=== PATIENT | female | born 1950 | race Caucasian/White ===

== ENCOUNTER 2016-08-05 08:41 | Outpatient (CLI) | payer MEDICARE, OTHER | END 2016-08-05 14:02 | LOC: D.MAMMO 08:41 | DX: Z12.31 Encounter for screening mammogram for malignant neoplasm of breast (principal) ==

== ENCOUNTER → 2017-04-14 15:14 | Outpatient (CLI) | payer MEDICARE, OTHER | END | disposition home or self-care (01) | LOC: D.CT 15:14 | DX: R93.3 Abnormal findings on diagnostic imaging of other parts of digestive tract (principal) ==

== ENCOUNTER → 2017-04-21 10:08 | Outpatient (CLI) | payer MEDICARE, OTHER ==
[2017-04-21 10:34] LABS: BASOPHILS 0.6 % (0-2); EOSINOPHILS 7.2 % (0-7); HEMATOCRIT 38.7 % (36.0-48.0); HEMOGLOBIN 12.9 g/dL (12-16); IMMATURE GRANULOCYTES 0.4 % (0-5); LYMPHOCYTES 37.7 % (15-50); MCHC 33.3 g/dL (31.0-37.0); MEAN PLATELET VOLUME 9.6 fL (7.4-10.4); MONOCYTES 9.7 % (2-11); NEUTROPHILS 44.4 % (40-80); PLATELET COUNT 177 10x3/uL (130-400); RBC 4.16 10x6/uL (4.00-5.40); RDW 13.6 % (11.5-14.5); WBC 5.1 10x3/uL (4.8-10.8)
[2017-04-21 10:58] LABS: ALBUMIN 3.4 g/dL (3.4-5.0); ALKALINE PHOSPHATASE 61 U/L (46-116); ALT (SGPT) 26 U/L (10-68); BILIRUBIN - TOTAL 0.33 mg/dL (0.2-1.3); CALC OSMOLALITY 278 mosm/kg (275-300); CALCIUM 9.3 mg/dL (8.5-10.1); CARBON DIOXIDE 29.1 mmol/L (21.0-32.0); CHLORIDE - SERUM 103 mmol/L (98-107); CREATININE - SERUM 0.8 mg/dL (0.6-1.3); GLUCOSE 100 mg/dL (74-106); POTASSIUM - SERUM 4.2 mmol/L (3.5-5.1); PROTEIN - SERUM 7.1 g/dL (6.4-8.2); SODIUM 140 mmol/L (136-145); UREA NITROGEN 12 mg/dL (7-18); eGFR NON AFRICAN AMERICAN 76 mL/min (90-120)
== END | disposition home or self-care (01) ==
LOC: D.LAB 04-19 08:30
PROVIDERS: Internal Medicine Gastroenterology
DX: D37.4 Neoplasm of uncertain behavior of colon (principal)

== ENCOUNTER 2017-05-11 08:25 | Inpatient (IN) | payer MEDICARE, OTHER ==
[~2017-05-11] VITALS: Ht 170.2 cm; Wt 90.7 kg
--- NOTE | ~2017-05-11 | OP ---
PATIENT NAME: LELE HERNANDEZ MEDICAL RECORD: [id number] :50 LOCATION:D.MS [id number] ADMISSION DATE:05/11/17 SURGEON: MUSA STEVENS MD DATE OF OPERATION: 05/11/2017 PREOPERATIVE DIAGNOSIS: Right colon mass on the ileocecal valve. POSTOPERATIVE DIAGNOSES: Right colon mass on the ileocecal valve with advanced cirrhosis. PROCEDURE: 1. Hand-assisted laparoscopic surgery - right hemicolectomy. 2. 18-gauge core needle liver biopsies. SURGEON: Musa Stevens MD ANESTHESIA: General. COMPLICATIONS: None. The risks, possible complications, and alternatives to the procedure were explained to the patient. She elects to proceed. OPERATIVE COURSE: The patient was conveyed to the operating room electively on 05/11/2017. General anesthesia was induced by the anesthesia staff. The abdomen was sterilely prepped and draped. A small skin kavitha was accomplished in the left upper quadrant. Veress needle was inserted through the skin kavitha into the peritoneal cavity. CO2 insufflation was begun. Upon insufflating the abdomen, I could then see through some translucent skin, some very large subcutaneous blood vessels. I became concerned that the patient may have cirrhosis. A 5-mm trocar was inserted through an incision in the umbilicus. Two more 5 mm trocars were inserted, one in the epigastrium and one in the suprapubic area. During insertion of the Veress needle and all the trocars, there appeared to have been no injury to the bowels, any intraperitoneal or retroperitoneal structures. There was advanced cirrhosis present. There was also stigmata of portal hypertension noted with enlarged mesenteric veins and enlarged omental veins. I elected to perform a liver biopsy. I percutaneously accessed the right upper quadrant under laparoscopic guidance with an 18-gauge core needle liver biopsy device. Cores were obtained over the convexity of the liver. The biopsy sites were made hemostatic with the electrocautery. I then pulled the right colon medially. I incised along the right white line of Toldt with the laparoscopic EnSeal device. I performed some blunt dissection as well, freeing up the ileum as well as the right colon and the hepatic flexure. I then decided to place the Justin retractor. I chose an area in the right upper quadrant for insertion of the Justin retractor. A transverse incision was accomplished there. I then dissected down through the skin and subcutaneous tissue with electrocautery. I incised the external oblique aponeurosis and muscle along the direction of its fibers. I then the internal oblique and transversus abdominis muscles. I entered the peritoneal cavity sharply. The Justin retractor was placed. I was able to exteriorize the right colon as OPERATIVE REPORT [id number] LELE HERNANDEZ well as the ileum. A window was created in the mesentery of the ileum. I stapled across the tip of the ileum with an Endo-RHIANNON type stapler utilizing a blue load. I then chose the distal extent of my resection as the proximal transverse colon. A window was created in the mesocolon. I stapled across this part of the colon with an Endo-RHIANNON type stapler utilizing a blue load. The interpose mesentery was taken down with the laparoscopic EnSeal device. I ensured that the small bowel was not twisted on its mesentery. Some 3-0 Vicryl sutures were used to place the ileum and the transverse colon into apposition side by side. A small colotomy and small enterotomy were accomplished. Anvils of the RHIANNON-75 stapler were advanced. I then stapled. The resulting intracolonic defect was closed with a single firing of a TA 60 stapler. I oversewed portions of the staple line with some 3-0 Vicryls. I irrigated and aspirated in the right upper quadrant. Additional hemostasis was achieved with application of Angelo. The internal oblique and transversus abdominis muscle layers were closed with running #1 Vicryls. The external oblique aponeurosis and muscle was closed with a running #1 Vicryl. The subcutaneous adipose tissue was closed with interrupted 3-0 Vicryls. The subdermis was approximated with interrupted 3-0 Vicryls. The skin in the right upper quadrant was closed with a running intracuticular 4-0 Vicryl. The other 3 trocars were removed after I placed a 10-New Zealander closed suction drain through the inferior most trocar site. The drain was sutured to the skin with a 2-0 nylon. The skin at the umbilicus was closed with interrupted 4-0 Vicryl Rapide sutures. The skin in the epigastrium was closed with interrupted intracuticular 3-0 Vicryl. Sterile dressings were applied. The patient was then conveyed to the post-anesthesia care unit where she was in stable condition. TRANSINT:[id number] Voice Confirmation ID: [id number] DOCUMENT ID: [id number] MUSA STEVENS MD at 1607 CC: VITO REHMAN MD and EVGENY HUTCHINS [id number] DICTATION DATE: 05/11/17 1639 TYPE MAPPER: 05/11/17 1833 ADM IN [place] [id number] [place] [id number]
[~2017-05-11 08:25] MED LIST: BAYER CHEWABLE81 MG PO; CELEXA20 MG PO; CENTRUM SILVER1 TA1 PO; COREG6.25 MG PO; FISH OIL 1,0001 CA1 PO; HYDROCHLOROTHIA25 MG PO; LIPITOR40 MG PO; MIRAPEX0.25 MG PO; PERCOCET 5-3251 TAB PO; PROTONIX40 MG PO; SYNTHROID137 MCG PO; TRIGLIDE160 MG PO; VITAMIN D2000 UNIT PO
[2017-05-11 09:24] VITALS: BP 104/68; BMI 31.4
[2017-05-11 10:03] LABS: HEMATOCRIT 35.6 % (36.0-48.0); HEMOGLOBIN 11.7 g/dL (12-16); MCH 30.6 pg (26.0-34.0); MCHC 32.9 g/dL (31.0-37.0); MCV 93.2 fL (80.0-100.0); MEAN PLATELET VOLUME 9.7 fL (7.4-10.4); RBC 3.82 10x6/uL (4.00-5.40); RDW 12.9 % (11.5-14.5); WBC 6.5 10x3/uL (4.8-10.8)
[2017-05-11 16:19] VITALS: BP 127/73
[2017-05-11 22:09] VITALS: BP 163/86
[2017-05-11 22:30] VITALS: BMI 31.4
[2017-05-12 01:29] VITALS: BP 136/64
[2017-05-12 04:33] VITALS: BP 102/60
[2017-05-12 07:17] LABS: BASOPHILS 0.1 % (0-2); EOSINOPHILS 0.2 % (0-7); HEMATOCRIT 33.8 % (36.0-48.0); IMMATURE GRANULOCYTES 0.2 % (0-5); LYMPHOCYTES 13.1 % (15-50); MCH 30.5 pg (26.0-34.0); MCHC 32.5 g/dL (31.0-37.0); MCV 93.6 fL (80.0-100.0); MEAN PLATELET VOLUME 9.2 fL (7.4-10.4); MONOCYTES 9.3 % (2-11); NEUTROPHILS 77.1 % (40-80); PLATELET COUNT 158 10x3/uL (130-400); RBC 3.61 10x6/uL (4.00-5.40)
[2017-05-12 07:18] LABS: WBC 8.3 10x3/uL (4.8-10.8)
[2017-05-12 07:52] LABS: ALBUMIN 2.6 g/dL (3.4-5.0); ALKALINE PHOSPHATASE 70 U/L (46-116); ALT (SGPT) 27 U/L (10-68); BILIRUBIN - TOTAL 0.79 mg/dL (0.2-1.3); CALC OSMOLALITY 269 mosm/kg (275-300); CALCIUM 8.4 mg/dL (8.5-10.1); CARBON DIOXIDE 20.8 mmol/L (21.0-32.0); CHLORIDE - SERUM 100 mmol/L (98-107); CREATININE - SERUM 0.8 mg/dL (0.6-1.3); GLUCOSE 86 mg/dL (74-106); MAGNESIUM - SERUM 1.1 mg/dL (1.8-2.4); POTASSIUM - SERUM 3.6 mmol/L (3.5-5.1); PROTEIN - SERUM 6.2 g/dL (6.4-8.2); SODIUM 136 mmol/L (136-145); UREA NITROGEN 10 mg/dL (7-18); eGFR NON AFRICAN AMERICAN 76 mL/min (90-120)
[2017-05-12 07:53] LABS: TROPONIN-I < 0.017 ng/mL (0.000-0.060)
[2017-05-12 07:57] VITALS: BP 115/61
[2017-05-12 13:07] VITALS: BP 114/65
[2017-05-12 13:18] VITALS: Ht 170.2 cm; Wt 90.7 kg
[2017-05-12 20:00] VITALS: BP 116/63
[2017-05-13 04:00] VITALS: BP 113/64
[2017-05-13 07:44] VITALS: BP 109/50
[2017-05-13 13:19] LABS: HEPATITIS C ANTIBODY <0.1 (0.0-0.9)
[2017-05-13 15:55] VITALS: BP 105/63
[2017-05-13 20:00] VITALS: BP 117/74
[2017-05-14 04:00] VITALS: BP 121/77
[2017-05-14 06:06] LABS: BASOPHILS 0.2 % (0-2); EOSINOPHILS 6.5 % (0-7); HEMATOCRIT 31.2 % (36.0-48.0); HEMOGLOBIN 10.1 g/dL (12-16); IMMATURE GRANULOCYTES 0.2 % (0-5); LYMPHOCYTES 22.7 % (15-50); MCH 30.6 pg (26.0-34.0); MCHC 32.4 g/dL (31.0-37.0); MCV 94.5 fL (80.0-100.0); MEAN PLATELET VOLUME 9.5 fL (7.4-10.4); MONOCYTES 7.8 % (2-11); NEUTROPHILS 62.6 % (40-80); PLATELET COUNT 145 10x3/uL (130-400); RDW 12.8 % (11.5-14.5)
[2017-05-14 06:22] LABS: WBC 6.1 10x3/uL (4.8-10.8)
[2017-05-14 06:29] LABS: ALKALINE PHOSPHATASE 54 U/L (46-116); CALC OSMOLALITY 275 mosm/kg (275-300); CALCIUM 7.9 mg/dL (8.5-10.1); CARBON DIOXIDE 22.3 mmol/L (21.0-32.0); CHLORIDE - SERUM 105 mmol/L (98-107); CREATININE - SERUM 0.7 mg/dL (0.6-1.3); GLUCOSE 124 mg/dL (74-106); POTASSIUM - SERUM 3.5 mmol/L (3.5-5.1); PROTEIN - SERUM 5.6 g/dL (6.4-8.2); SODIUM 138 mmol/L (136-145); UREA NITROGEN 11 mg/dL (7-18); eGFR NON AFRICAN AMERICAN 89 mL/min (90-120)
[2017-05-14 06:30] LABS: ALT (SGPT) 20 U/L (10-68)
[2017-05-14 08:15] VITALS: BP 119/75
[2017-05-14 13:04] VITALS: BP 151/80
[2017-05-14 15:58] VITALS: BP 150/76
[2017-05-14 21:57] VITALS: BP 130/69
[2017-05-15 00:57] VITALS: BP 134/68
[2017-05-15 04:36] LABS: BASOPHILS 0.2 % (0-2); EOSINOPHILS 6.2 % (0-7); HEMOGLOBIN 10.5 g/dL (12-16); IMMATURE GRANULOCYTES 0.2 % (0-5); LYMPHOCYTES 26.4 % (15-50); MCH 30.1 pg (26.0-34.0); MCHC 32.8 g/dL (31.0-37.0); MEAN PLATELET VOLUME 9.2 fL (7.4-10.4); MONOCYTES 8.8 % (2-11); NEUTROPHILS 58.2 % (40-80); PLATELET COUNT 171 10x3/uL (130-400); RBC 3.49 10x6/uL (4.00-5.40); RDW 12.5 % (11.5-14.5); WBC 5.4 10x3/uL (4.8-10.8)
[2017-05-15 04:45] LABS: MCV 91.7 fL (80.0-100.0)
[2017-05-15 05:04] LABS: ALBUMIN 2.1 g/dL (3.4-5.0); ALKALINE PHOSPHATASE 63 U/L (46-116); ALT (SGPT) 19 U/L (10-68); CALC OSMOLALITY 276 mosm/kg (275-300); CALCIUM 8.2 mg/dL (8.5-10.1); CARBON DIOXIDE 23.3 mmol/L (21.0-32.0); CHLORIDE - SERUM 106 mmol/L (98-107); CREATININE - SERUM 0.6 mg/dL (0.6-1.3); GLUCOSE 96 mg/dL (74-106); POTASSIUM - SERUM 3.4 mmol/L (3.5-5.1); PROTEIN - SERUM 5.8 g/dL (6.4-8.2); SODIUM 140 mmol/L (136-145); eGFR NON AFRICAN AMERICAN > 90 mL/min (90-120)
[2017-05-15 05:05] LABS: UREA NITROGEN 8 mg/dL (7-18)
[2017-05-15 05:45] VITALS: BP 124/84
[2017-05-15 09:16] VITALS: BP 161/93
[2017-05-15 12:08] VITALS: BP 168/98
[2017-05-15 16:07] VITALS: BP 155/85
[2017-05-15 23:18] VITALS: BP 150/104
[2017-05-16 04:00] VITALS: BP 154/99
[2017-05-16 04:07] LABS: BASOPHILS 0.2 % (0-2); EOSINOPHILS 4.3 % (0-7); HEMATOCRIT 33.4 % (36.0-48.0); HEMOGLOBIN 11.4 g/dL (12-16); IMMATURE GRANULOCYTES 0.2 % (0-5); LYMPHOCYTES 36.2 % (15-50); MCHC 34.1 g/dL (31.0-37.0); MCV 90.8 fL (80.0-100.0); MEAN PLATELET VOLUME 9.3 fL (7.4-10.4); MONOCYTES 10.6 % (2-11); NEUTROPHILS 48.5 % (40-80); PLATELET COUNT 201 10x3/uL (130-400); RBC 3.68 10x6/uL (4.00-5.40); RDW 12.5 % (11.5-14.5); WBC 5.4 10x3/uL (4.8-10.8)
[2017-05-16 04:21] LABS: CALCIUM 9.1 mg/dL (8.5-10.1); CARBON DIOXIDE 26.6 mmol/L (21.0-32.0); CHLORIDE - SERUM 103 mmol/L (98-107); CREATININE - SERUM 0.7 mg/dL (0.6-1.3); GLUCOSE 89 mg/dL (74-106); SODIUM 139 mmol/L (136-145); eGFR NON AFRICAN AMERICAN 89 mL/min (90-120)
[2017-05-16 04:22] LABS: CALC OSMOLALITY 273 mosm/kg (275-300); UREA NITROGEN 4 mg/dL (7-18)
[2017-05-16 04:23] LABS: POTASSIUM - SERUM 2.9 mmol/L (3.5-5.1)
[2017-05-16 08:25] VITALS: BP 148/80
[2017-05-16 14:08] VITALS: BP 137/83
== END 2017-05-16 16:10 | disposition home or self-care (01) | DRG 981 ==
LOC: D.SDCHOLD 08:25 → D.MS 08:25 → D.SDCHOLD 11:00 → D.MS 16:18
PROVIDERS: Anesthesiology; Family Medicine; Surgery
PROC: 0FB03ZX Excision of Liver, Percutaneous Approach, Diagnostic (ICD-10-PCS; 2017-05-11)
PROC: 0DTF0ZZ Resection of Right Large Intestine, Open Approach (ICD-10-PCS; principal; 2017-05-11 11:00)
DX: K74.60 Unspecified cirrhosis of liver (principal); J18.9 Pneumonia, unspecified organism; E72.20 Disorder of urea cycle metabolism, unspecified; J95.89 Other postprocedural complications and disorders of respiratory system, not elsewhere classified; R41.0 Disorientation, unspecified; R50.9 Fever, unspecified; Y83.8 Other surgical procedures as the cause of abnormal reaction of the patient, or of later complication, without mention of misadventure at the time of the procedure

== ENCOUNTER 2017-07-27 05:44 | Day surgery (SDC) | payer MEDICARE, OTHER ==
[~2017-07-27] VITALS: Ht 170.2 cm; Wt 85.7 kg
--- NOTE | ~2017-07-27 | OP ---
PATIENT NAME: LELE HERNANDEZ MEDICAL RECORD: [id number] :50 LOCATION:DERIC ADMISSION DATE: SURGEON: MUSA STEVENS MD DATE OF OPERATION: 07/27/2017 PREOPERATIVE DIAGNOSIS: History of a duodenal adenoma. POSTOPERATIVE DIAGNOSES: 1. History of a duodenal adenoma. The adenoma was a 1.5-cm adenoma at the second portion of duodenum. 2. Multiple prepyloric and antral gastric ulcers, which were raised but had ulcerated areas within the center of the contained exudative debris. 3. 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 PROCEDURES: 1. Esophagogastroduodenoscopy with duodenal polypectomy utilizing the argon plasma associate professor of communication, which is a radiofrequency type of ablation of a benign small bowel process. 2. Argon plasma coagulation therapy to these raised, ulcerated, and polypoid lesions that were in the antrum and the prepyloric area. I did this as they probably had bled in the recent past. 3. Cold endoscopic biopsies of the distal esophagus to rule out Xiao's esophagus. SURGEON: Musa Stevens MD ADVERTISING INTERN: None. BLOOD LOSS: Minimal. ANESTHESIA: General. COMPLICATIONS: None. The risks, possible complications, and alternatives to the procedure were explained to the patient. She elects to proceed. The discussion specifically included, but was not limited to, bleeding requiring an emergency reoperation, infection, endoscopic perforation. OPERATIVE COURSE: The patient was conveyed to the operating room electively on 07/27/2017. General anesthesia was induced by the anesthesia staff. A bite-block was inserted. A gastroscope was inserted into the mouth. It was advanced easily into the hypopharynx. The esophagus was easily intubated as were the stomach and the duodenum. Upon withdrawal, retroflexed and angulus views were obtained. Antral biopsies were obtained in the area of the ulcerated lesions. I then advanced into the duodenum. Cold endoscopic biopsies were performed of the flat polyp which was easily identifiable and was better seen with narrow band imaging. Multiple cold endoscopic biopsies were performed. I then ablated the remaining polypoid tissue with the argon plasma associate professor of communication utilizing the esophageal setting in the forced mode. I then withdrew into the antrum and the prepyloric area. I then ablated the polypoid lesions with the argon plasma associate professor of communication. Retroflexed and angulus views were obtained. I then withdrew into the distal esophagus. Cold endoscopic biopsies were performed at the distal esophagus to rule out Xiao's OPERATIVE REPORT [id number] LELE HERNANDEZ esophagus. The endoscope was then withdrawn under direct vision. I will see the patient back in my office in 2-3 weeks. I will plan for another EGD utilizing the argon plasma associate professor of communication in one year to see if there has been any regrowth of the duodenal adenoma. TRANSINT:[id number] Voice Confirmation ID: [id number] DOCUMENT ID: [id number] MUSA STEVENS MD CC: VITO REHMAN MD and EVGENY HUTCHINS [id number] DICTATION DATE: 07/27/17 183 NETWORK PROFESSIONAL: 07/27/17 224 [facility] 07/27/17 [facility] [address] [place] [address]
[~2017-07-27 05:44] MED LIST changes: +SYNTHROID125 MCG PO; -SYNTHROID137 MCG PO
[2017-07-27 06:30] VITALS: BP 120/79; Ht 170.2 cm; Wt 85.7 kg
[2017-07-27 06:48] LABS: HEMATOCRIT 40.8 % (36.0-48.0); HEMOGLOBIN 13.6 g/dL (12-16); MCH 29.9 pg (26.0-34.0); MCHC 33.3 g/dL (31.0-37.0); MCV 89.7 fL (80.0-100.0); MEAN PLATELET VOLUME 9.3 fL (7.4-10.4); RBC 4.55 10x6/uL (4.00-5.40); RDW 14.3 % (11.5-14.5); WBC 7.9 10x3/uL (4.8-10.8)
[2017-07-27 07:09] LABS: ALBUMIN 3.3 g/dL (3.4-5.0); ALKALINE PHOSPHATASE 84 U/L (46-116); ALT (SGPT) 25 U/L (10-68); CALC OSMOLALITY 275 mosm/kg (275-300); CALCIUM 9.6 mg/dL (8.5-10.1); CARBON DIOXIDE 26.4 mmol/L (21.0-32.0); CHLORIDE - SERUM 101 mmol/L (98-107); CREATININE - SERUM 0.7 mg/dL (0.6-1.3); GLUCOSE 121 mg/dL (74-106); POTASSIUM - SERUM 3.4 mmol/L (3.5-5.1); PROTEIN - SERUM 7.5 g/dL (6.4-8.2); SODIUM 137 mmol/L (136-145); UREA NITROGEN 14 mg/dL (7-18); eGFR NON AFRICAN AMERICAN 89 mL/min (90-120)
[2017-07-27 07:10] LABS: APTT 27.4 SECONDS (22.8-39.4); INR 1.05 (0.85-1.17); PROTIME 13.3 SECONDS (11.6-15.0)
== END 2017-07-27 14:45 | disposition home or self-care (01) ==
LOC: D.OPS 05:44 → D.PAN 09:00 → D.OPS 09:00 → D.PAN 09:30 → D.OPS 14:45
PROVIDERS: Anesthesiology
DX: D13.2 Benign neoplasm of duodenum (principal); K29.50 Unspecified chronic gastritis without bleeding; K25.7 Chronic gastric ulcer without hemorrhage or perforation; K20.9 Esophagitis, unspecified; Z01.812 Encounter for preprocedural laboratory examination

== ENCOUNTER 2017-08-16 08:00 | Outpatient (CLI) | payer MEDICARE, OTHER ==
[2017-07-27 06:30] VITALS: BMI 29.6
== END 2017-08-16 08:01 | disposition home or self-care (01) ==
LOC: D.MAMMO 08:00
DX: Z12.31 Encounter for screening mammogram for malignant neoplasm of breast (principal)

== ENCOUNTER → 2017-09-01 19:03 | Outpatient (CLI) | payer MEDICARE, OTHER ==
[2017-07-27 06:30] VITALS: BMI 29.6
== END | disposition home or self-care (01) ==
LOC: D.MAMMO 09:00
DX: R92.8 Other abnormal and inconclusive findings on diagnostic imaging of breast (principal)

== ENCOUNTER → 2017-10-10 10:45 | Outpatient (CLI) | payer MEDICARE, OTHER ==
[2017-07-27 06:30] VITALS: BMI 29.6
== END | disposition home or self-care (01) ==
LOC: D.US 10:45
DX: N63.11 Unspecified lump in the right breast, upper outer quadrant (principal)

== ENCOUNTER → 2017-11-04 19:00 | Outpatient (CLI) | payer MEDICARE, OTHER ==
[2017-07-27 06:30] VITALS: BMI 29.6
== END | disposition home or self-care (01) ==
LOC: D.MAMMO 10-28 08:00
DX: R92.8 Other abnormal and inconclusive findings on diagnostic imaging of breast (principal)

== ENCOUNTER → 2017-11-14 07:07 | Outpatient (CLI) | payer MEDICARE, OTHER ==
[2017-07-27 06:30] VITALS: BMI 29.6
[2017-11-14 08:03] LABS: BASOPHILS 0.3 % (0-2); EOSINOPHILS 0.5 % (0-7); HEMATOCRIT 42.8 % (36.0-48.0); HEMOGLOBIN 14.6 g/dL (12-16); IMMATURE GRANULOCYTES 0.3 % (0-5); LYMPHOCYTES 30.4 % (15-50); MCHC 34.1 g/dL (31.0-37.0); MCV 90.9 fL (80.0-100.0); MEAN PLATELET VOLUME 9.6 fL (7.4-10.4); MONOCYTES 7.5 % (2-11); PLATELET COUNT 171 10x3/uL (130-400); RBC 4.71 10x6/uL (4.00-5.40); RDW 13.9 % (11.5-14.5); WBC 7.9 10x3/uL (4.8-10.8)
[2017-11-14 08:14] LABS: % SATURATION 20 % (15-55); APTT 25.1 SECONDS (22.8-39.4); INR 1.11 (0.85-1.17); IRON 89 ug/dl (35-150); PROTIME 13.9 SECONDS (11.6-15.0); TOTAL IRON BIND CAPACITY 427 ug/dl (260-445); UNSAT IRON BIND CAPACITY 338 ug/dl (150-375)
[2017-11-14 08:28] LABS: ALBUMIN 3.9 g/dL (3.4-5.0); ANION GAP 10.4 mmol/L (8-16); BILIRUBIN - DIRECT 0.15 mg/dL (0.00-0.30); BILIRUBIN - INDIRECT 0.29 mg/dL (0.00-1.00); BILIRUBIN - TOTAL 0.44 mg/dL (0.2-1.3); CALCIUM 9.1 mg/dL (8.5-10.1); CARBON DIOXIDE 29.6 mmol/L (21.0-32.0); CHOL - HDL RATIO 2.3 ratio (2.3-4.1); LDL-HDL RATIO 1.2 ratio (1.5-3.5); PROTEIN - SERUM 7.7 g/dL (6.4-8.2)
[2017-11-15 07:28] LABS: HAPTOGLOBIN 115 mg/dL (34-200)
[2017-11-15 08:17] LABS: FOLATE (FOLIC ACID) - SERUM >20.0 ng/mL (>3.0); HEPATITIS C ANTIBODY <0.1 (0.0-0.9)
[2017-11-15 12:14] LABS: ANA REFLEX - DIRECT Negative (Negative)
[2017-11-15 14:23] LABS: ALPHA FETOPROTEIN -(TUMOR MRK) 4.1 ng/mL (0.0-8.3)
[2017-11-16 14:24] LABS: MITOCHONDRIAL ANTIBODY 10.8 Units (0.0-20.0); SMOOTH MUSCLE ABS (ACTIN) 64 Units (0-19)
== END | disposition home or self-care (01) ==
LOC: D.US 07:07
PROVIDERS: Internal Medicine Gastroenterology
DX: K74.60 Unspecified cirrhosis of liver (principal)

== ENCOUNTER → 2018-05-15 07:46 | Outpatient (CLI) | payer MEDICARE, OTHER ==
[2017-07-27 06:30] VITALS: BMI 29.6
[2018-05-15 08:24] LABS: BASOPHILS 0.3 % (0-2); EOSINOPHILS 3.4 % (0-7); HEMATOCRIT 42.3 % (36.0-48.0); HEMOGLOBIN 14.7 g/dL (12-16); IMMATURE GRANULOCYTES 0.2 % (0-5); MCH 31.5 pg (26.0-34.0); MCHC 34.8 g/dL (31.0-37.0); MCV 90.8 fL (80.0-100.0); MEAN PLATELET VOLUME 9.6 fL (7.4-10.4); MONOCYTES 7.5 % (2-11); NEUTROPHILS 40.6 % (40-80); PLATELET COUNT 165 10x3/uL (130-400); RBC 4.66 10x6/uL (4.00-5.40); RDW 12.5 % (11.5-14.5); WBC 5.9 10x3/uL (4.8-10.8)
[2018-05-15 08:38] LABS: ALBUMIN 3.8 g/dL (3.4-5.0); BILIRUBIN - DIRECT 0.12 mg/dL (0.00-0.30); BILIRUBIN - INDIRECT 0.22 mg/dL (0.00-1.00); BILIRUBIN - TOTAL 0.34 mg/dL (0.2-1.3); INR 1.01 (0.85-1.17); PROTEIN - SERUM 7.3 g/dL (6.4-8.2); PROTIME 12.8 SECONDS (11.6-15.0)
== END | disposition home or self-care (01) ==
LOC: D.US 07:30
PROVIDERS: ATTEND Internal Medicine Gastroenterology
DX: K74.60 Unspecified cirrhosis of liver (principal)

== ENCOUNTER → 2018-06-20 09:57 | Outpatient (CLI) | payer MEDICARE, OTHER | END | disposition home or self-care (01) | LOC: D.CT 09:57 | DX: R10.9 Unspecified abdominal pain (principal) ==

== ENCOUNTER 2018-07-19 08:00 | Outpatient (CLI) | payer MEDICARE, OTHER ==
[2017-07-27 06:30] VITALS: BMI 29.6
== END 2018-07-19 09:00 | disposition home or self-care (01) ==
LOC: D.MAMMO 08:00
PROVIDERS: ATTEND Family Medicine
DX: R92.8 Other abnormal and inconclusive findings on diagnostic imaging of breast (principal)

== ENCOUNTER 2018-07-25 08:31 | Day surgery (SDC) | payer MEDICARE, OTHER ==
[~2018-07-25] VITALS: Ht 170.2 cm; Wt 90.9 kg
[2018-07-25 08:52] LABS: HEMATOCRIT 38.9 % (36.0-48.0); HEMOGLOBIN 13.6 g/dL (12-16); MCH 31.8 pg (26.0-34.0); MCV 90.9 fL (80.0-100.0); MEAN PLATELET VOLUME 9.4 fL (7.4-10.4); RBC 4.28 10x6/uL (4.00-5.40); RDW 13.1 % (11.5-14.5); WBC 4.6 10x3/uL (4.8-10.8)
[2018-07-25 09:04] LABS: APTT 26.6 SECONDS (22.8-39.4)
[2018-07-25 09:11] LABS: ALBUMIN 3.5 g/dL (3.4-5.0); ALKALINE PHOSPHATASE 61 U/L (46-116); ALT (SGPT) 30 U/L (10-68); BILIRUBIN - TOTAL 0.26 mg/dL (0.2-1.3); CALC OSMOLALITY 285 mosm/kg (275-300); CALCIUM 9.1 mg/dL (8.5-10.1); CARBON DIOXIDE 28.8 mmol/L (21.0-32.0); CHLORIDE - SERUM 105 mmol/L (98-107); CREATININE - SERUM 0.7 mg/dL (0.6-1.3); GLUCOSE 112 mg/dL (74-106); POTASSIUM - SERUM 3.7 mmol/L (3.5-5.1); SODIUM 142 mmol/L (136-145); UREA NITROGEN 18 mg/dL (7-18); eGFR NON AFRICAN AMERICAN 88 mL/min (90-120)
[2018-07-25 09:16] LABS: PROTIME 13.1 SECONDS (11.6-15.0)
[2018-07-25 10:00] VITALS: Ht 170.2 cm; Wt 90.9 kg
--- NOTE | 2018-07-25 14:38 | NUR ---
1439 DC INSTS REVIEWED VOICED UNDERSTANDING PT IS DRESSED RELEASED IN WC WITH FAMILY.
--- NOTE | 2018-07-30 14:09 | OP ---
PATIENT NAME: LELE HERNANDEZ MEDICAL RECORD: [id number] :50 LOCATION:D.OPS ADMISSION DATE: SURGEON: MUSA STEVENS MD DATE OF OPERATION: 07/25/2018 PREOPERATIVE DIAGNOSES: 1. Antral gastric polyps, bleeding. 2. Duodenal polyp. POSTOPERATIVE DIAGNOSES: 1. Antral gastric polyps, bleeding. 2. Duodenal polyp. 3. Probable Xiao's esophagus. PROCEDURES: 1. EGD. 2. Gastric polypectomies times 2, utilizing the argon plasma inside sales coordinator. 3. Duodenal polypectomy times 1, utilizing the argon plasma inside sales coordinator. SURGEON: Musa Stevens MD SURGICAL FIRST ASSISTANT: None. BLOOD LOSS: Minimal. ANESTHESIA: Oral topical anesthesia as well as IV sedation. COMPLICATIONS: None. The risks, possible complications, and alternatives to the procedure were explained to the patient. She elects to proceed. The discussion specifically included, but was not limited to, bleeding requiring emergency reoperation, infection, endoscopic perforation. ENDOSCOPIC COURSE: The patient was conveyed to the endoscopy suite electively on 07/25/2018. IV sedation was induced by the anesthesia staff. A bite block was inserted. A gastroscope was inserted into the mouth. It was advanced easily into the hypopharynx. The esophagus was easily intubated as was the stomach and the duodenum. Upon withdrawal, retroflexed and angulus views were obtained. I advanced into the duodenum. The polypoid structure that I saw was at 9 o'clock and was within the duodenal bulb. Cold endoscopic biopsies were performed. After adequate biopsies, I then ablated the polypoid base with the argon plasma inside sales coordinator utilizing the esophageal setting in the forced mode. I withdrew into the stomach. Both of the polyps were biopsied multiply. The specimens were placed together in one specimen container. It appeared that the polyps had been bleeding. I then ablated the polypoid bases with the argon plasma inside sales coordinator utilizing the esophageal setting in the forced mode. I then withdrew into the distal esophagus. There appeared to be a Xiao's esophagus present. I began to perform some cold endoscopic biopsies. I ran into some bleeding that I felt was unsatisfactory, so I discontinued further biopsies of the distal esophagus. The gastroscope was then withdrawn under direct vision. OPERATIVE REPORT [id number] LELE HERNANDEZ I will see the patient in my office in 2-3 weeks. I would like to go back in in 1-2 years and in particular examine this duodenal polyp to ensure that it has not regrown. TRANSINT:[id number] Voice Confirmation ID: [id number] DOCUMENT ID: [id number] MUSA STEVENS MD at 1409 CC: VITO REHMAN MD and EVGENY HUTCHINS [id number] DICTATION DATE: 07/25/18 1350 LEGAL RESEARCHER: 07/25/18 1457 [facility] 07/25/18 [place] [id number] [place] [address]
== END 2018-07-25 14:39 | disposition home or self-care (01) ==
LOC: D.OPS 08:31
PROVIDERS: Anesthesiology; ATTEND Surgery
DX: K31.7 Polyp of stomach and duodenum (principal); K22.70 Barrett's esophagus without dysplasia; Z01.812 Encounter for preprocedural laboratory examination

== ENCOUNTER → 2018-11-07 13:11 | Outpatient (CLI) | payer MEDICARE, OTHER ==
[2018-07-25 10:00] VITALS: BMI 31.4
[2018-11-07 13:33] LABS: BASOPHILS 0.3 % (0-2); EOSINOPHILS 2.2 % (0-7); HEMATOCRIT 45.2 % (36.0-48.0); HEMOGLOBIN 15.9 g/dL (12-16); IMMATURE GRANULOCYTES 0.3 % (0-5); LYMPHOCYTES 31.1 % (15-50); MCH 32.6 pg (26.0-34.0); MCHC 35.2 g/dL (31.0-37.0); MCV 92.8 fL (80.0-100.0); MEAN PLATELET VOLUME 9.2 fL (7.4-10.4); NEUTROPHILS 59.1 % (40-80); PLATELET COUNT 147 10x3/uL (130-400); RBC 4.87 10x6/uL (4.00-5.40); RDW 12.8 % (11.5-14.5); WBC 6.8 10x3/uL (4.8-10.8)
[2018-11-07 13:44] LABS: INR 1.05 (0.85-1.17); PROTIME 13.2 SECONDS (11.6-15.0)
[2018-11-07 14:14] LABS: BILIRUBIN - DIRECT 0.18 mg/dL (0.00-0.30); BILIRUBIN - INDIRECT 0.36 mg/dL (0.00-1.00); BILIRUBIN - TOTAL 0.54 mg/dL (0.2-1.3); PROTEIN - SERUM 7.6 g/dL (6.4-8.2)
[2018-11-08 12:09] LABS: ALPHA FETOPROTEIN -(TUMOR MRK) 4.5 ng/mL (0.0-8.3)
== END | disposition home or self-care (01) ==
LOC: D.LAB 13:00 → D.US 13:30
PROVIDERS: ATTEND Internal Medicine Gastroenterology
DX: K74.60 Unspecified cirrhosis of liver (principal)

== ENCOUNTER 2019-02-21 07:47 | Day surgery (SDC) | payer MEDICARE, OTHER ==
[2019-02-20 14:09] LABS: HEMATOCRIT 43.1 % (36.0-48.0); HEMOGLOBIN 14.8 g/dL (12-16); MCH 32.8 pg (26.0-34.0); MCHC 34.3 g/dL (31.0-37.0); MCV 95.6 fL (80.0-100.0); MEAN PLATELET VOLUME 9.3 fL (7.4-10.4); RBC 4.51 10x6/uL (4.00-5.40); RDW 12.5 % (11.5-14.5); WBC 6.3 10x3/uL (4.8-10.8)
[2019-02-20 14:23] LABS: CALC OSMOLALITY 278 mosm/kg (275-300); CALCIUM 8.8 mg/dL (8.5-10.1); CARBON DIOXIDE 30.3 mmol/L (21.0-32.0); CHLORIDE - SERUM 100 mmol/L (98-107); CREATININE - SERUM 0.8 mg/dL (0.6-1.3); GLUCOSE 101 mg/dL (74-106); POTASSIUM - SERUM 3.4 mmol/L (3.5-5.1); SODIUM 138 mmol/L (136-145); UREA NITROGEN 20 mg/dL (7-18); eGFR NON AFRICAN AMERICAN 75 mL/min (90-120)
[~2019-02-21] VITALS: Ht 170.2 cm; Wt 94.8 kg
--- NOTE | ~2019-02-21 | OP ---
PATIENT NAME: LELE HERNANDEZ MEDICAL RECORD: [id number] :50 LOCATION:DERIC ADMISSION DATE: SURGEON: RUSTY MCRAE DPM DATE OF OPERATION: 02/21/2019 PREOPERATIVE DIAGNOSES: 1. Hallux abducto valgus, left foot. 2. Instability, left first met cuneiform joint. POSTOPERATIVE DIAGNOSES: 1. Hallux abducto valgus, left foot. 2. Instability, left first met cuneiform joint. PROCEDURES 1. Tate bunionectomy, left foot. 2. First met cuneiform joint fusion, left foot. ANESTHESIA: Preoperative popliteal block per the anesthesia department as well as some intraoperative local with Marcaine and lidocaine plain, approximately 10 cc around the first ray. HEMOSTASIS: Left thigh tourniquet at 350 mmHg. PREOPERATIVE DETAILS: The patient was taken to the OR, placed on the operating table in a supine position. This was followed by induction of general anesthesia. The left extremity was then prepped and draped in the usual aseptic technique followed by exsanguination and inflation of tourniquet. Some local was then injected around the first ray. PROCEDURE NUMBER 1. Tate bunionectomy, left foot. Incision was made from the dorsal aspect of the medial cuneiform, extending distally to the base of proximal phalanx of the hallux. The incision was deepened down through subcutaneous tissue being sure to avoid all vital structures. Dissection was carried down further to the first MPJ where an inverted L capsulotomy in the medial flap was reflected and the head of the first metatarsal was delivered. A sagittal saw was used to resect the medial eminence. Attention was then directed to the first interspace where a lateral release was performed. PROCEDURE NUMBER 2: Fusion, left first met cuneiform joint. The incision as described above was deepened down to the periosteum. A periosteal incision was made. The first met cuneiform joint was delivered. A sagittal saw was used to resect the joint. Temporary fixation was placed and a 5-hole plate with one screw through the plate crossing the joint was placed under excellent rigid internal fixation. C-arm was used to verify good placement and alignment. Wound was flushed. The deep tissue as well as the capsule were repaired with 2-0 Vicryl, the subcutaneous tissue with 4-0 Rapide and the skin was closed with 4-0 Rapide in a subcuticular technique followed by Dermabond. Adaptic, 4 x 4 and conform were used to dress the wound followed by application of modified Schmitz compression dressing. Tourniquet was deflated. POSTOPERATIVE DETAILS: The patient tolerated the procedure well and left the OR with vital signs stable and vascular status at preoperative levels. The patient was transported to recovery per anesthesia in stable condition. TRANSINT:[id number] Voice Confirmation ID: [id number] DOCUMENT ID: [id number] OPERATIVE REPORT [id number] LELE HERNANDEZ MCKAY DPM CC: [id number] DICTATION DATE: 02/21/19 1225 PEPPER PICKER: 02/21/19 1355 [facility] [address] [place] [address]
[~2019-02-21 07:47] MED LIST changes: +[UNRECOGNIZED DRUG - OTHER] PO
[2019-02-21 08:33] VITALS: BP 121/76; Ht 170.2 cm; Wt 94.8 kg
== END 2019-02-21 14:10 | disposition home or self-care (01) ==
LOC: D.OPS 07:47 → D.PAN 09:45 → D.OPS 10:45 → D.PAN 10:45 → D.OPS 14:10
PROVIDERS: Anesthesiology; ATTEND Podiatrist
DX: M20.12 Hallux valgus (acquired), left foot (principal); M25.375 Other instability, left foot; I10 Essential (primary) hypertension

== ENCOUNTER → 2019-07-23 20:38 | Outpatient (CLI) | payer MEDICARE, OTHER ==
[2019-02-21 08:33] VITALS: BMI 32.8
== END | disposition home or self-care (01) ==
LOC: D.MAMMO 10:30
PROVIDERS: ATTEND Family Medicine
DX: Z12.31 Encounter for screening mammogram for malignant neoplasm of breast (principal)

== ENCOUNTER 2019-10-16 11:19 | Day surgery (SDC) | payer MEDICARE, OTHER ==
[~2019-10-16] VITALS: Ht 170.2 cm; Wt 90.9 kg
--- NOTE | ~2019-10-16 | HP ---
PATIENT: LELE HERNANDEZ MEDICAL RECORD: [id number] ACCOUNT: [id number] LOCATION:DVANE : 50 ADMISSION DATE: 10/16/19 PCP: EVGENY HUTCHINS MD HISTORY AND PHYSICAL EXAMINATION CHIEF COMPLAINT: Xiao's esophagus. HISTORY OF PRESENT ILLNESS: The patient has Xiao's esophagus. She has a history of gastric polyps as well as a duodenal polyp. She is to undergo upper endoscopy with biopsies and possible polypectomy. PAST MEDICAL AND SURGICAL HISTORY: Hand-assisted laparoscopic surgery, hypothyroidism, on replacement therapy, history of bunionectomy, history of diet-controlled gastroesophageal reflux, hypertension. HOME MEDICINES: Please see the nursing list. REVIEW OF SYSTEMS: Negative for CVA or seizures. Negative for diabetes or hepatitis. SOCIAL HISTORY: Nonsmoker. ALLERGIES: No known drug allergies. PHYSICAL EXAMINATION: GENERAL: The patient does appear acutely ill. She does not appear chronically ill. The entire physical examination was performed in the presence of a female nurse. CARDIOVASCULAR: Regular rhythm. PULMONARY: Nonlabored. ABDOMEN: No peritonitis with movement. EXTREMITIES: No peripheral cyanosis. INTEGUMENT: No rash. IMPRESSION: 1. Gastric polyps. 2. History of adenoma of the duodenum. 3. History of Xiao's esophagus. PLAN: Upper endoscopy. Biopsies. Possible polypectomy. TRANSINT:[id number] Voice Confirmation ID: [id number] DOCUMENT ID: [id number] MUSA STEVENS MD CC: EVGENY HUTCHINS [id number] DICTATION DATE: 10/16/19 1600 COAL HANDLING SUPERVISOR: 10/16/191946 [facility] 10/16/19 [place] [id number] [place] [address]
--- NOTE | ~2019-10-16 | OP ---
PATIENT NAME: LELE HERNANDEZ MEDICAL RECORD: [id number] :50 LOCATION:D.OPS ADMISSION DATE: SURGEON: YAMIL STEVENS MD DATE OF OPERATION: 10/16/2019 PREOPERATIVE DIAGNOSES: 1. History of Xiao esophagus, in need of surveillance upper endoscopy. 2. History of gastric polyps. 3. History of duodenal adenoma. POSTOPERATIVE DIAGNOSES: 1. History of Xiao esophagus, in need of surveillance upper endoscopy. 2. History of gastric polyps. 3. History of duodenal adenoma. 4. Minute duodenal bulbar polyp. 5. Three adenomatous-appearing polyps involving the antrum. 6. Moderately sized hiatal hernia. PROCEDURES: 1. Esophagogastroduodenoscopy with cold distal esophageal biopsies. 2. Gastric hot biopsy polypectomy. 3. Duodenal hot biopsy polypectomy. SURGEON: Yamil Stevens MD MANAGER CORE: None. BLOOD LOSS: Minimal. ANESTHESIA: IV sedation. COMPLICATIONS: None. The risks, possible complications and alternatives to the procedure were explained to the patient. She elects to proceed. The discussion specifically included, but was not limited to, bleeding requiring emergency reoperation, infection, endoscopic perforation. ENDOSCOPIC COURSE: The patient was conveyed to the endoscopy suite electively on 10/16/2019. IV sedation was induced by the anesthesia staff. A bite block was inserted. A gastroscope was inserted into the mouth. It was advanced easily into the hypopharynx. The esophagus was easily intubated as were the stomach and duodenum. Upon withdrawal, retroflexed and angulus views were obtained. I withdrew into the distal esophagus. Multiple distal esophageal biopsies were obtained along the esophagogastric junction. These are biopsies to surveil for Xiao esophagus. I advanced into the duodenal bulb. I identified a cluster of minute polyps and these were removed in their entireties utilizing the hot biopsy forceps polypectomy technique. I then withdrew into the stomach. There were 3 adenomatous-appearing polyps in a row. These were biopsied utilizing cold biopsy forceps polypectomy technique. OPERATIVE REPORT [id number] LELE HERNANDEZ I then performed ablation of the remainder of the polyps utilizing the argon plasma funeral location manager with the esophageal setting in the forced mode. The endoscope was then withdrawn under direct vision. I will see the patient in my office in 2-3 weeks. I will plan for her next surveillance upper endoscopy to take place in 2 years. TRANSINT:[id number] Voice Confirmation ID: [id number] DOCUMENT ID: [id number] YAMIL STEVENS MD CC: EVGENY HUTCHINS [phone] DICTATION DATE: 10/16/191652 BELLOWS TESTER: 10/17/19 0134 [facility] 10/16/19 [place] [id number] [place] [address]
[2019-10-16 12:31] LABS: HEMATOCRIT 42.5 % (36.0-48.0); HEMOGLOBIN 14.3 g/dL (12-16); MCH 32.7 pg (26.0-34.0); MCHC 33.6 g/dL (31.0-37.0); MCV 97.3 fL (80.0-100.0); MEAN PLATELET VOLUME 9.6 fL (7.4-10.4); RBC 4.37 10x6/uL (4.00-5.40); RDW 12.9 % (11.5-14.5); WBC 5.7 10x3/uL (4.8-10.8)
[2019-10-16 13:32] VITALS: BP 131/87; Ht 170.2 cm; Wt 90.9 kg
--- NOTE | 2019-10-16 17:20 | NUR ---
PT DC INSTRUCTIONS REVIEWED AT THIS TIME, PT VERBALIZES UNDERSTANDING. PT IV REMOVED AT THIS TIME, INTACT, NO REDNESS OR SWELLING NOTED AT SITE.
--- NOTE | 2019-10-16 17:30 | NUR ---
PT LEAVING OPS AT THIS TIME, IN WC, NAD NOTED.
== END 2019-10-16 17:30 | disposition home or self-care (01) ==
LOC: D.OPS 11:19
PROVIDERS: Anesthesiology; ATTEND Surgery
DX: K22.70 Barrett's esophagus without dysplasia (principal); K31.7 Polyp of stomach and duodenum; K44.9 Diaphragmatic hernia without obstruction or gangrene; Z87.19 Personal history of other diseases of the digestive system

== ENCOUNTER → 2020-06-12 10:50 | Outpatient (CLI) | payer MEDICARE, OTHER ==
[2019-10-16 13:32] VITALS: BMI 31.4
== END | disposition home or self-care (01) ==
LOC: D.CT 10:30
PROVIDERS: ATTEND Family Medicine
DX: R10.9 Unspecified abdominal pain (principal)

== ENCOUNTER → 2020-07-30 08:37 | Outpatient (CLI) | payer MEDICARE, OTHER ==
[2019-10-16 13:32] VITALS: BMI 31.4
== END | disposition home or self-care (01) ==
LOC: D.US 08:30
PROVIDERS: ATTEND Family Medicine
DX: N28.1 Cyst of kidney, acquired (principal)

== ENCOUNTER → 2020-08-12 10:45 | Outpatient (CLI) | payer MEDICARE, OTHER ==
[2019-10-16 13:32] VITALS: BMI 31.4
== END | disposition home or self-care (01) ==
LOC: D.MAMMO 10:45
PROVIDERS: ATTEND Family Medicine
DX: Z12.31 Encounter for screening mammogram for malignant neoplasm of breast (principal)